=== PATIENT | female | born 1970 | race Caucasian/White ===

== ENCOUNTER 2016-06-16 10:17 | Emergency (ER) | payer OTHER ==
[2016-06-16 10:42] VITALS: BP 114/70
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
[2016-06-16] MEDS ORDERED: KETOROLAC TROMETHAMINE 60 MG/2 ML VIAL IM ONE (10:54)
[2016-06-16] MEDS ORDERED: KETOROLAC TROMETHAMINE 60 MG/2 ML VIAL ONE (11:00)
[2016-06-16] MEDS ORDERED: fentaNYL CITRATE/PF 100 MCG/ 2ML AMP IM ONE (11:45)
--- NOTE | 2016-06-16 13:05 | Diagnostic Imaging Report ---
JOSEF LO~ [facility] [address] [facility] [address] [address] ~ ~ ~ ~ Report Submission Date: June 16, 2016 11:47:51 AM CDT Patient ~ Study Name: KECIA COLON ~ Date: June 16, 2016 11:17:38 AM CDT ~ Modality Type: CR Gender: F ~ Description: PELVIS : 72 ~ Institution: [facility] Physician: JOSEF LO ~ ~ ~ ~ AP view of the pelvis Clinical history: Injured due to trauma Hardware in the lower lumbar spine. No fractures, dislocation or bone destruction . Impression: Negative for fracture ~ Electronically signed on June 16, 2016 11:47:51 AM CDT by: Joesf FARLEY
--- NOTE | 2016-06-16 13:07 | Diagnostic Imaging Report ---
JOSEF LO~ [facility] [address] [facility] [address] [place] [address]. [id number] ~ ~ ~ ~ Report Submission Date: June 16, 2016 11:50:09 AM CDT Patient ~ Study Name: KECIA COLON ~ Date: June 16, 2016 11:09:13 AM CDT ~ Modality Type: CR Gender: F ~ Description: SPINE : 72 ~ Institution: [facility] Physician: JOSEF LO ~ ~ ~ ~ Lumbar spine 3 views Clinical history: History of fall with an injury of the lumbar spine . Hardware in the lower lumbar spine L4 through S1 with disc spacer at L4/L5 and L5/S1. No visible fractures, dislocation or bone destruction. Marginal spurring in the upper lumbar spine Impression: Post lower lumbar spine surgery with hardware in good position No fractures or bone destruction ~ Electronically signed on June 16, 2016 11:50:09 AM CDT by: Josef FARLEY
--- NOTE | 2016-06-16 18:39 | Diagnostic Imaging Report ---
JOSEF LO [facility] [address] [facility] [address] [address] Report Submission Date: June 16, 2016 11:51:54 AM CDT Patient Study Name: KECIA COLON Date: June 16, 2016 11:30:20 AM CDT Modality Type: CR Gender: F Description: UPPER EXTREMITY : 72 Institution: [facility] Physician: JOSEF LO Right wrist 3 views Clinical history: Injury the wrist by trauma No definite evidence of visible fracture, dislocation or bone destruction. No visible radiopaque foreign bodies. No soft tissue calcifications. Impression: Normal right wrist Electronically signed on June 16, 2016 11:51:54 AM CDT by: Josef FARLEY
== END 2016-06-16 12:18 | disposition home or self-care (01) ==
LOC: ED 10:17
DX: S39.92XA Unspecified injury of lower back, initial encounter (principal); W19.XXXA Unspecified fall, initial encounter; Y93.9 Activity, unspecified; Y99.9 Unspecified external cause status
CPT/HCPCS: 72100; 72170; 73110; J1885; J3010; 96374; 96375; 96376; 99283; 99284